=== PATIENT | male | born 1950 | race American Indian/Alaskan Native ===

== ENCOUNTER 2022-03-14 11:33 | Emergency (ER) | payer MEDICARE ==
[2022-03-14] MEDS ORDERED: VANCOMYCIN 0 MG in SODIUM CHLORIDE 0.9% 500 ML 500 ML IV ONE (19:42)
[2022-03-14] MEDS ORDERED: TETANUS,DIPH,PERTUSS(ACELL) VACCINE 0.5 ML SYRINGE IM ONE (19:42)
[2022-03-14] MEDS ORDERED: HYDROmorphone 0.5 MG/0.5 ML INJ IV STA (19:42)
--- NOTE | 2022-03-14 19:45 | Emergency Department Report ---
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 Patient reports that the family dog bit him a few days ago. This was not an unprovoked bite, patient reports that the family dog is quite protective over other family members, and bit the patient, when he was going to attend to another family member. Over the past few days, has developed right hand redness, pain, swelling, pus, and flexion. He denies additional injuries and complaints. He is not quite sure as to his tetanus vaccination status. He is quite certain that the dog is up-to-date on all vaccinations, including rabies. The dog is otherwise been acting normally. The patient denies additional injuries and complaints. He felt improved after hydromorphone here in the emergency room ED Review of Systems ROS: Stated complaint: DOG BITE Other details as noted in HPI Comment: All other systems reviewed and negative Musculoskeletal: joint swelling, arthralgia, myalgia Skin: lesions, change in color ED Past Medical Hx - Past Medical History Previous Medical History?: No - Surgical History Past Surgical History?: No Upper Extremity Exam - Exam General: Vital signs noted. No distress. Alert and acting appropriately. 2+ pulses noted in the bilateral upper and lower extremities. Left upper extremity is nontender, and the bilateral lower extremities are nontender. The right hand is grossly swollen, puncture wounds noted, with obvious purulence noted on the dorsal aspect of the right hand. Thumb and digits 2345 held in partial flexion. Lumbricals intact in digits 2 through 5. Thumb opposition partially intact to pointer finger, and middle finger. Cannot oppose thumb to ring finger or pinky. Not able to AB duct thumb. Head and Torso: Yes HEENT Abnormality (Chronically blind in the right eye. Left eye within normal limits), No Neck Tenderness, No Chest/Lungs Abnormality, No Abdominal Tenderness, No Back Tenderness Shoulder Exam: Yes Normal Range of Motion in Shoulder, No Shoulder Tenderness, No Clavicle Tenderness, No Shoulder Deformity, No AC Joint Tenderness Arm Exam: No Arm/Humerus Tenderness, No Arm Deformity Elbow: Yes Normal Range of Motion in Elbow, No Elbow Tenderness, No Elbow Deformity Forearm: Yes Forearm Tenderness (Right distal forearm), Yes Pain with Pronation (Right forearm), Yes Pain with Supination (Right forearm), No Forearm Deformity Wrist: Yes Wrist Tenderness, No Normal ROM in Wrist, No Wrist Deformity Hand: Yes Hand Tenderness, Yes Hand Deformity, Yes Digit Tenderness, Yes Tendon Dysfunction, No Normal ROM in Digit(s), No Digit(s) Deformity CMS Exam: Yes Broken Skin, Yes Normal Distal Pulses, Yes Normal Capillary Refill, Yes Normal Distal Sensation ED Course Vital Signs 03/14/22 11:50 Temperature 98.6 F Pulse Rate 100 H Respiratory 20 Rate Blood Pressure 142/87 [Right] O2 Sat by Pulse 100 Oximetry - Reevaluation(s) Reevaluation #1: 03/14/22 20:44 Differential diagnosis, include but not limited to: Cellulitis, abscess, myositis, dominant hand infection Assessment and plan: 71-year-old gentleman presenting with right hand dog bite, obviously infected, manifested by pus, swelling, tenderness, redness and warmth, digits held in partial flexion. He has appropriate sensation to light touch in the deltoid, median, radial, and ulnar distribution. The forearm is otherwise nontender. Patient requires emergent evaluation with a hand surgeon because this is his dominant hand infection. This hospital currently does not have orthopedics or hand surgery available for consultation. Patient and family report that dog is domesticated, no concern for rabies, and up-to-date with vaccinations. Patient to be medicated with Ancef, vancomycin, tetanus vaccination, as well as hydromorphone. Have recommended transfer to facility that can provide hand surgery services, which we are not able to provide over here. I discussed this with the patient and his son. They articulated understanding. X-ray of the hand shows no fracture or dislocation. Patient feels improved after hydromorphone. I discussed the patient's history, physical, clinical impression with hand surgeon on-call for Dr. Haydee Christy Patient is accepted as an ER to ER transfer. This patient has an emergent medical condition which cannot be definitively managed at this hospital, secondary to lack of available subspecialty services. Patient hemodynamically stable, protecting airway, and suitable/stable for transfer for definitive services. All questions were answered Reevaluation #2: 03/14/22 22:49 171 lbs [place] Body Weight Equivalent to 78 kg Actual body weight is 137% (1.4x) ideal body weight We will therefore dose normal saline IV fluid resuscitation, 30 cc/kg of ideal body weight ED Medical Decision Making - Lab Data Result diagrams: 03/14/22 20:18 03/14/22 20:18 Vital Signs 03/14/22 03/14/22 03/14/22 11:50 19:23 19:31 Temperature 98.6 F Pulse Rate 100 H 66 Respiratory 20 21 21 Rate Blood Pressure 146/87 Blood Pressure 142/87 [Right] O2 Sat by Pulse 100 94 99 Oximetry 03/14/22 03/14/22 19:45 20:01 Temperature Pulse Rate 70 Respiratory 26 H Rate Blood Pressure 143/77 143/77 Blood Pressure [Right] O2 Sat by Pulse 98 99 Oximetry - Radiology Data Radiology results: pending, report reviewed, image reviewed RIGHT HAND 3 VIEW(S) INDICATION / CLINICAL INFORMATION: dog bite right hand COMPARISON: None available. FINDINGS: BONES / JOINT(S): No acute fracture or subluxation. No significant arthritis. SOFT TISSUES: Moderate soft tissue swel ling on the dorsum of the hand with small soft tissue laceration. No radiopaque foreign body. ADDITIONAL FINDINGS: None. IMPRESSION: 1. No fracture. Moderate dorsal soft tissue swelling. Signer Name: Isaías Talbot MD Signed: 03/14/2022 7:11 PM Workstation Name: [id number] Critical care attestation.: If time is entered above; I have spent that time in minutes in the direct care of this critically ill patient, excluding procedure time. ED Disposition Clinical Impression: SIRS (systemic inflammatory response syndrome) Infected animal bite of hand Qualifiers: Encounter type: initial encounter Laterality: right Qualified Code(s): S61.451A - Open bite of right hand, initial encounter Disposition: [facility] Is pt being admited?: No Does the pt Need Aspirin: No Condition: Good Referrals: ABDIRAHMAN URIAS MD [Primary Care Provider] - 3-5 Days
[2022-03-14] MEDS ORDERED: VANCOMYCIN PHARMACY TO DOSE IV SCH (20:00)
--- NOTE | 2022-03-14 20:16 | XRay Report ---
RIGHT HAND 3 VIEW(S) INDICATION / CLINICAL INFORMATION: dog bite right hand COMPARISON: None available. FINDINGS: BONES / JOINT(S): No acute fracture or subluxation. No significant arthritis. SOFT TISSUES: Moderate soft tissue swelling on the dorsum of the hand with small soft tissue lacerati on. No radiopaque foreign body. ADDITIONAL FINDINGS: None. IMPRESSION: 1. No fracture. Moderate dorsal soft tissue swelling. Signer Name: Isaías Talbot MD Signed: 03/14/2022 8:11 PM Workstation Name: [id number]
[2022-03-14] MEDS ORDERED: HYDROmorphone 1 MG/1 ML INJ IV ONE (20:46)
[2022-03-14 21:07] LABS: INR 1.01 (0.87-1.13)
[2022-03-14 21:08] LABS: Partial Thromboplastin Time 30.5 Sec. (24.2-36.6)
[2022-03-14 21:09] LABS: Hematocrit 45.6 % (35.5-45.6); Hemoglobin 15.3 gm/dl (11.8-15.2); Mean Corpuscular HGB Conc 34 % (32-34); Mean Corpuscular Volume 97 fl (84-94); Platelet Count 111 K/mm3 (140-440); Red Blood Count 4.71 M/mm3 (3.65-5.03); Red Cell Distribution Width 14.6 % (13.2-15.2)
[2022-03-14 21:20] LABS: Alanine Aminotransferase 16 units/L (7-56); BUN/Creatinine Ratio 15; Blood Urea Nitrogen 20 mg/dL (9-20); Calcium 9.8 mg/dL (8.4-10.2); Hemolysis Index 25
[2022-03-14] MEDS ORDERED: VANCOMYCIN 2,000 MG in SODIUM CHLORIDE 0.9% 500 ML 500 ML IV ONE (21:30)
[2022-03-14 22:33] LABS: Erythrocyte Sedimentation Rate 58 mm/Hr (0-20)
[2022-03-14 22:37] LABS: Basophils % (Manual) 0 % (0.0-1.8); Eosinophils % (Manual) 0 % (0.0-4.3); Total Cells Counted 100
[2022-03-14 22:38] LABS: Anisocytosis 1+; Platelet Estimate Consistent w Auto
[2022-03-14] MEDS ORDERED: SODIUM CHLORIDE 0.9% IV ONE (22:50)
[2022-03-15 01:02] VITALS: BP 117/57
== END 2022-03-15 01:08 | disposition short-term general hospital (02) ==
LOC: ED 11:33
DX: S61.451A Open bite of right hand, initial encounter (principal); R65.10 Systemic inflammatory response syndrome (SIRS) of non-infectious origin without acute organ dysfunction; W54.0XXA Bitten by dog, initial encounter; Y93.89 Activity, other specified; Y92.89 Other specified places as the place of occurrence of the external cause; Y99.8 Other external cause status
CPT/HCPCS: 36415; 73130; 80053; 82140; 82550; 85007; 85025; 85610; 85652; 85730; 86140; 87040; 90471; 90715; 96361; 96365; 96366; 96367; 96375; 96376; 99285; J0690; J1170; J3370; J7040